=== PATIENT | female | born 1980 | race Caucasian/White ===

== ENCOUNTER → 2019-09-10 | Outpatient (REF) | payer OTHER, SELFPAY ==
[2019-09-10 21:09] LABS: CHLAMYDIA DNA AMPLIFICATION POSITIVE (NEGATIVE); GC DNA AMPLIFICATION NEGATIVE (NEGATIVE)
== END ==
LOC: M LAB REF 18:56
PROVIDERS: ATTEND Physician Assistant Medical
DX: Z20.2 Contact with and (suspected) exposure to infections with a predominantly sexual mode of transmission (principal)

== ENCOUNTER 2020-01-29 15:22 | Emergency (ER) | payer OTHER ==
[~2020-01-29] VITALS: Ht 182.9 cm; Wt 88.6 kg
[2020-01-29] MEDS ORDERED: EMLA CREAM 5GM TUBE (LIDOCAINE/PRILOCAINE) TOP ONE (15:45)
--- NOTE | 2020-01-29 16:43 | REP ---
Head CT without contrast: History: Head trauma. Swelling posterior occipital region. Nausea. Comparison study: No comparison brain CT. CT findings: Bone window settings demonstrate an intact bony calvarium. There is no evidence of skull fracture or incidental bony calvarial lesion. The visualized paranasal sinuses appear clear. No intraorbital abnormality is seen. On soft tissue window setting images; the lateral, third, and fourth ventricles are normal in size and position. Woodward-white differentiation pattern is normal above and below the tentorium. There are is no evidence of intracranial hemorrhage. No mass, edema, infarction, or midline shift is seen. No extra-axial fluid collection is appreciated. Impression: Negative noncontrast head CT. Electronically Signed by Nahun Saenz MD 01/29/2020 04:33 P
[2020-01-29 17:05] VITALS: BP 136/72
== END 2020-01-29 17:06 | disposition home or self-care (01) ==
LOC: M ED 15:22
DX: S01.01XA Laceration without foreign body of scalp, initial encounter (principal); Y93.83 Activity, rough housing and horseplay; Y92.9 Unspecified place or not applicable; Y99.9 Unspecified external cause status; F17.200 Nicotine dependence, unspecified, uncomplicated

== ENCOUNTER 2020-02-06 08:17 | Emergency (ER) | payer OTHER ==
[~2020-02-06] VITALS: Ht 180.3 cm; Wt 87.8 kg
[2020-02-06 08:17] VITALS: BP 135/69
== END 2020-02-06 08:37 | disposition home or self-care (01) ==
LOC: M ED 08:17
DX: Z48.02 Encounter for removal of sutures (principal)